=== PATIENT | male | born 1960 | race Two or more races ===

== ENCOUNTER → 2016-12-11 | Outpatient (CLI) | payer OTHER ==
--- NOTE | ~2016-12-11 | CR63 ---
[facility]. [facility] A Service of [facility] & [facility] RADIOLOGY TEXT RESULTS PATIENT: SAURABH ROSALES LOCATION: [facility] : 60 UNIT #: [id number] AGE: [address]: Dany Richardson MD SEX: M ORDER DR: [id number] [place] [id number] O MR#: [id number] Acc #: [id number] NAME: SAURABH ROSALES : 1960 SEX: M STUDY DATE/TIME: 12/11/2016 9:58 UNIT: SRA ROOM: STUDY DESCRIPTION: CR Chest 2 View Attending Physician: Dany Richardson M.D. Referring Physician: Dany Richardson M.D. Ordering Physician: Dany Richardson M.D. Primary Care Physician: Dany Richardson M.D. MEDICAL IMAGING REPORT This report is preliminary unless electronic signature is present. EXAM Chest PA and lateral, 12/11/2016 HISTORY Cough and chest congestion with shortness of breath. Benign essential hypertension. Smoking history for 40 years. Preop back surgery. FINDINGS The heart is normal in size. The lungs are clear. There are no pleural effusions. Old healed left rib fractures are noted. IMPRESSION No active pulmonary disease. Dictated by... Cedrick Martinez M.D. THIS IS AN ELECTRONICALLY VERIFIED REPORT Cedrick Martinez M.D. at 12/12/2016 6:07 AM KENDAL/[email or web address] TD: 12/12/2016 03:40 JOB #: [id number] MEDICAL IMAGING REPORT
== END | disposition home or self-care (01) ==
LOC: SRAD 09:42
DX: Z01.811 Encounter for preprocedural respiratory examination (principal); R05 Cough
CPT/HCPCS: 71020